=== PATIENT | female | born 1985 | race Hispanic/Latino ===

== ENCOUNTER 2016-11-18 15:27 | Emergency (ER) | payer SELFPAY ==
[2016-11-18 15:40] VITALS: TEMP 98; O2SAT 100
--- NOTE | 2016-11-18 16:37 | C.PDOC ---
History Of Present Illness 31 y/o female presents to ED with complaints of intermittent mid sternal chest pain for 3 days. Patient also reports occasional back pain and paresthesia to bilateral arms but improved now. Patient states she has been under a lot of stress due to losing a loved one. Patient denies any other complaints. Time Seen by Provider: 11/18/16 15:58 Chief Complaint (Nursing): Chest Pain History Per: Patient History/Exam Limitations: no limitations Onset/Duration Of Symptoms: Days Current Symptoms Are (Timing): Still Present Past Medical History Reviewed: Historical Data, Nursing Documentation, Vital Signs Vital Signs: Last Vital Signs Temp 98 F 11/18/16 15:33 Pulse 93 H 11/18/16 15:33 Resp 20 11/18/16 15:33 BP 121/83 11/18/16 15:33 Pulse Ox 100 11/18/16 16:37 Surgical History: No Surg Hx Family History: States: No Known Family Hx - Social History Hx Alcohol Use: No Hx Substance Use: No - Immunization History Hx Tetanus Toxoid Vaccination: No Hx Influenza Vaccination: Yes Hx Pneumococcal Vaccination: No Review Of Systems Except As Marked, All Systems Reviewed And Found Negative. Constitutional: Negative for: Fever, Chills Eyes: Negative for: Vision Change Cardiovascular: Positive for: Chest Pain Respiratory: Negative for: Cough, Shortness of Breath Gastrointestinal: Negative for: Nausea, Vomiting Genitourinary: Negative for: Dysuria, Frequency Musculoskeletal: Positive for: Back Pain Skin: Negative for: Rash Physical Exam - Physical Exam Appears: Non-toxic, Other (Mild anxious appearing) Skin: Normal Color, Warm, Dry, No Rash Head: Atraumatic, Normacephalic Eye(s): bilateral: Normal Inspection Oral Mucosa: Moist Neck: Normal ROM, Supple Chest: Symmetrical Cardiovascular: Rhythm Regular, No Murmur Respiratory: Normal Breath Sounds, No Rales, No Rhonchi, No Wheezing Gastrointestinal/Abdominal: Soft, No Tenderness, No Guarding, No Rebound Extremity: Normal ROM, Capillary Refill (<2 seconds) Neurological/Psych: Oriented x3, Normal Speech ED Course And Treatment O2 Sat by Pulse Oximetry: 100 (RA) Pulse Ox Interpretation: Normal Against Medical Advice - AMA Patient Left Against Medical Advice: The patient declines admission to the hospital and wishes to leave the Emergency Department. This action is against my medical advice. This decision was made with informed refusal. The patient was told that admission to the hospital is necessary. Explanation of the reasons why were discussed. The risks of leaving were explained to the patient and include, but are not limited to, worsening of known or currently unknown conditions, permanent disability and from undiagnosed or untreated conditions. The patient has the capacity to make this informed decision and understands my explanation of the current medical problem and risks of leaving. The patient voluntarily accepts these risks and signed an AMA form documenting our conversation. The patient was given the opportunity to ask questions and reconsider. The patient was encouraged to return to the Emergency Department at any time for further care. Medical Decision Making Medical Decision Making: Upon evaluation patient states she "needs something to relax and wants no other work up" Disposition - Disposition Referrals: [facility] [Outside] [facility] [Outside] [facility] [Outside] [facility] [Outside] Disposition: AGAINST MEDICAL ADVICE Disposition Time: 16:35 Condition: STABLE Additional Instructions: you are leaving with out diagnostic studies being preformed. you are able to return to er at any point with any concern. please see clinic and specialist. Instructions: Chest Pain (ED), Anxiety (ED) Forms: [employer] (Bulgarian) - Clinical Impression Clinical Impression: Chest pain - Scribe Statement The provider has reviewed the documentation as recorded by the Scribolvin Tracey All medical record entries made by the Bcibolvin were at my direction and personally dictated by me. I have reviewed the chart and agree that the record accurately reflects my personal performance of the history, physical exam, medical decision making, and the department course for this patient. I have also personally directed, reviewed, and agree with the discharge instructions and disposition.
[2016-11-18 16:52] VITALS: BP 107/74; PULSE 84; RESP 18
== END 2016-11-18 17:00 | disposition left against medical advice (07) ==
LOC: C.ER 15:27
DX: R07.9 Chest pain, unspecified (principal)

== ENCOUNTER 2016-11-23 19:43 | Emergency (ER) | payer OTHER ==
[2016-11-23 20:03] VITALS: RESP 16
[2016-11-23 21:20] LABS: BASO % 0.3 % (0.0-2.0); EOS # 0.2 K/uL (0.0-0.7); EOS % 2.7 % (0.0-4.0); HEMATOCRIT 39.7 % (34.0-47.0); LYMPH # 1.9 K/uL (1.0-4.3); LYMPH % 31.5 % (20.0-40.0); MEAN CELL VOLUME 66.4 fL (81.0-99.0); MEAN CORPUSCULAR HEMOGLOBIN 21.4 pg (27.0-31.0); MEAN CORPUSCULAR HGB CONC 32.2 g/dL (33.0-37.0); MONO # 0.5 K/uL (0.0-0.8); MONO % 7.7 % (0.0-10.0); RED CELL DISTRIBUTION WIDTH 14.8 % (11.5-14.5); WHITE BLOOD COUNT 6.1 K/uL (4.8-10.8)
[2016-11-23 21:25] LABS: RBC URINE < 1 /hpf (0-3); URINE BACTERIA RARE (<OCC); URINE BILIRUBIN NEGATIVE (NEGATIVE); URINE BLOOD NEGATIVE (NEGATIVE); URINE COLOR Yellow (YELLOW); URINE GLUCOSE (UA) NORMAL (Normal); URINE KETONE NEGATIVE (NEGATIVE); URINE LEUKOCYTE ESTERASE NEG Leu/uL (Negative); URINE PROTEIN NEGATIVE (NEGATIVE); URINE UROBILINOGEN NORMAL mg/dL (0.2-1.0); WBC URINE < 1 /hpf (0-5)
[2016-11-23 21:38] LABS: CHLORIDE 102 mmol/L (98-107)
[2016-11-23 21:39] LABS: POTASSIUM 3.6 mmol/L (3.6-5.2); SODIUM 140 mmol/L (132-148)
[2016-11-23 21:41] LABS: ALB/GLOB RATIO 1.4 (1.0-2.1); BILIRUBIN,TOTAL 0.4 mg/dL (0.2-1.3); CARBON DIOXIDE 25 mmol/L (22-30); GFR AFRICAN-AMERICAN > 60; TOTAL PROTEIN 7.7 g/dL (6.3-8.3)
[2016-11-23 21:42] LABS: ALKALINE PHOSPHATASE 80 U/L (38-126); ALT/SGPT 23 U/L (9-52); AST/SGOT 15 U/L (14-36); BLOOD UREA NITROGEN 14 mg/dL (7-17); GLUCOSE,RANDOM 98 mg/dL (65-105)
--- NOTE | 2016-11-23 21:52 | C.PDOC ---
History Of Present Illness 31 year old female who presents to the ER with a complaint of vague chest discomfort and anxiety after a in the family that occurred some time in the last 3 months. Patient was seen on 11/18/16 and left AMA; she is concerned about this recurrent and requests to be evaluated. Denies SOB, nausea, or vomiting. Time Seen by Provider: 11/23/16 21:33 Chief Complaint (Nursing): Chest Pain History Per: Patient History/Exam Limitations: no limitations Onset/Duration Of Symptoms: Days Current Symptoms Are (Timing): Still Present Associated Symptoms: denies: Nausea, Dyspnea, Diaphoresis, Syncope Modifying Factors: None Exacerbating Factors: None Alleviating Factors: None Recent travel outside of the [place]: No Past Medical History Reviewed: Historical Data, Nursing Documentation, Vital Signs Vital Signs: Last Vital Signs Temp 97.8 F 11/23/16 22:15 Pulse 85 11/23/16 22:15 Resp 16 11/23/16 22:15 BP 115/80 11/23/16 22:15 Pulse Ox 100 11/23/16 22:15 - Medical History PMH: No Chronic Diseases Surgical History: No Surg Hx Family History: States: Unknown Family Hx - Social History Hx Alcohol Use: No Hx Substance Use: No - Immunization History Hx Tetanus Toxoid Vaccination: No Hx Influenza Vaccination: Yes Hx Pneumococcal Vaccination: No Review Of Systems Constitutional: Negative for: Fever, Chills Cardiovascular: Positive for: Chest Pain (Discomfort) Respiratory: Negative for: Shortness of Breath Gastrointestinal: Negative for: Nausea, Vomiting Neurological: Negative for: Weakness, Numbness Psych: Positive for: Anxiety Physical Exam - Physical Exam Appears: Non-toxic, Other (Anxious, Tearful) Skin: Normal Color, Warm, Dry Head: Atraumatic, Normacephalic Eye(s): bilateral: Normal Inspection, EOMI Oral Mucosa: Moist Chest: Symmetrical, No Tenderness Cardiovascular: Rhythm Regular, No Murmur Respiratory: Normal Breath Sounds, No Rales, No Rhonchi, No Wheezing Gastrointestinal/Abdominal: Soft, No Tenderness Extremity: Normal ROM (x4) Neurological/Psych: Oriented x3, Normal Speech, Normal Cognition ED Course And Treatment - Laboratory Results Result Diagrams: 11/23/16 21:12 11/23/16 21:12 Lab Interpretation: Normal (trop neg.) ECG: Interpreted By Me ECG Rhythm: Sinus Rhythm ECG Interpretation: Normal Rate From EC O2 Sat by Pulse Oximetry: 99 Pulse Ox Interpretation: Normal Progress Note: Blood work, EKG, and urinalysis ordered. Reevaluation Time: 21:51 Reassessment Condition: Improved Medical Decision Making Medical Decision Making: more likely anxiety due to in the family approx < 3 mo go no GERD/cardiac components w/u neg f/u as opt. Disposition Doctor Will See Patient In The: Office Counseled Patient/Family Regarding: Studies Performed, Diagnosis - Disposition Referrals: Steve Jeff MD [Non-Staff] - Disposition: HOME/ ROUTINE Disposition Time: 21:51 Condition: GOOD Additional Instructions: please follow-up with Dr. Jeff for futher eval of your anxiety issues, as needed. Instructions: Anxiety (ED) Forms: [facility] (Telugu) - Clinical Impression Clinical Impression: Chest discomfort, Anxiety - Scribe Statement The provider has reviewed the documentation as recorded by the Scribe Stanton Chang All medical record entries made by the Scribe were at my direction and personally dictated by me. I have reviewed the chart and agree that the record accurately reflects my personal performance of the history, physical exam, medical decision making, and the department course for this patient. I have also personally directed, reviewed, and agree with the discharge instructions and disposition.
[2016-11-23 22:16] VITALS: BP 115/80; PULSE 85; TEMP 97.8
[2016-11-23 22:34] VITALS: O2SAT 99
--- NOTE | 2016-11-26 22:33 | CARD ---
APPROVED REPORT EKG Measurement Heart [id number] TN 130P34 [id number] <Conclusion> Normal sinus rhythm with sinus arrhythmia Normal ECG
== END 2016-11-23 22:17 | disposition home or self-care (01) ==
LOC: C.ER 19:43
DX: R07.9 Chest pain, unspecified (principal); F41.9 Anxiety disorder, unspecified

== ENCOUNTER 2017-10-15 22:59 | Emergency (ER) | payer OTHER ==
[2017-10-15 23:08] VITALS: RESP 20; TEMP 98.5
[2017-10-15 23:42] LABS: HCG,QUALITATIVE URINE NEGATIVE (NEGATIVE)
[2017-10-15 23:43] LABS: SQUAMOUS EPITHIAL 4 /hpf (0-5); URINE BACTERIA OCC (<OCC); URINE BILIRUBIN NEGATIVE (NEGATIVE); URINE BLOOD NEGATIVE (NEGATIVE); URINE CLARITY Hazy (Clear); URINE COLOR Yellow (YELLOW); URINE GLUCOSE (UA) NORMAL (Normal); URINE LEUKOCYTE ESTERASE NEG Leu/uL (Negative); URINE PROTEIN NEGATIVE (NEGATIVE); URINE UROBILINOGEN NORMAL mg/dL (0.2-1.0)
[2017-10-15] MEDS ORDERED: Sodium Chloride 0.9% 1,000 ML IV ONE (23:45)
[2017-10-15] MEDS ORDERED: Sucralfate 1 gm/10 ml Oral Susp UD PO STA (23:46)
--- NOTE | 2017-10-16 00:04 | C.PDOC ---
History Of Present Illness 32 year old female presents to the ER with a complaint of epigastric pain intermittently for the past few days. Patient describes the pain as a burning sensation and states it worsens after eating. Denies nausea or vomiting. Chief Complaint (Nursing): Abdominal Pain History Per: Patient History/Exam Limitations: no limitations Onset/Duration Of Symptoms: Days, Intermittent Episodes Current Symptoms Are (Timing): Still Present Location Of Pain/Discomfort: Epigastric Radiation Of Pain To:: None Quality Of Discomfort: Burning Associated Symptoms: denies: Nausea, Vomiting Exacerbating Factors: None Alleviating Factors: None Recent travel outside of the [place]: No Abnormal Vaginal Bleeding: No Past Medical History Reviewed: Historical Data, Nursing Documentation, Vital Signs Vital Signs: Last Vital Signs Temp 98.5 F 10/15/17 23:03 Pulse 95 H 10/15/17 23:03 Resp 20 10/15/17 23:03 BP 120/85 10/15/17 23:03 Pulse Ox 99 10/16/17 00:19 Surgical History: Appendectomy Family History: States: Unknown Family Hx - Social History Hx Alcohol Use: No Hx Substance Use: No - Immunization History Hx Tetanus Toxoid Vaccination: No Hx Influenza Vaccination: No Hx Pneumococcal Vaccination: No Review Of Systems Constitutional: Negative for: Fever, Chills Cardiovascular: Negative for: Chest Pain, Palpitations Respiratory: Negative for: Cough, Shortness of Breath Gastrointestinal: Positive for: Abdominal Pain. Negative for: Nausea, Vomiting Physical Exam - Physical Exam Appears: Non-toxic, No Acute Distress Skin: Normal Color, Warm, Dry Head: Atraumatic, Normacephalic Eye(s): bilateral: Normal Inspection Oral Mucosa: Moist Neck: Normal, Supple Chest: Symmetrical, No Tenderness Cardiovascular: Rhythm Regular Respiratory: Normal Breath Sounds, No Rales, No Rhonchi, No Wheezing Gastrointestinal/Abdominal: Soft, Tenderness (Epigastric), No Guarding, No Rebound Back: No CVA Tenderness Neurological/Psych: Oriented x3, Normal Speech ED Course And Treatment - Laboratory Results Result Diagrams: 10/15/17 23:55 10/15/17 23:55 O2 Sat by Pulse Oximetry: 99 (Room air) Pulse Ox Interpretation: Normal Progress Note: Blood work and urinalysis ordered. Carafate, protonix, and IV fluids administered. Disposition Counseled Patient/Family Regarding: Diagnosis - Disposition Referrals: [facility] [Outside] Disposition: HOME/ ROUTINE Disposition Time: 01:12 Condition: STABLE Prescriptions: Famotidine [Pepcid] 20 mg PO BID #30 tab Sucralfate [Carafate] 1 gm PO BID #20 tab Instructions: Gastritis, Ulcer and Gastritis Diet Forms: [employer] (Ukrainian) - POA Present On Arrival: None - Clinical Impression Clinical Impression: Gastroduodenitis - Scribe Statement The provider has reviewed the documentation as recorded by the Scribolvin Chang All medical record entries made by the Bcibolvin were at my direction and personally dictated by me. I have reviewed the chart and agree that the record accurately reflects my personal performance of the history, physical exam, medical decision making, and the department course for this patient. I have also personally directed, reviewed, and agree with the discharge instructions and disposition.
[2017-10-16 00:06] LABS: BASO % 0.4 % (0.0-2.0); EOS # 0.2 K/uL (0.0-0.7); HEMOGLOBIN 12.3 g/dL (11.0-16.0); LYMPH # 1.5 K/uL (1.0-4.3); LYMPH % 27.1 % (20.0-40.0); MEAN CELL VOLUME 66.3 fL (81.0-99.0); MEAN CORPUSCULAR HEMOGLOBIN 21.7 pg (27.0-31.0); MEAN CORPUSCULAR HGB CONC 32.7 g/dL (33.0-37.0); MEAN PLATELET VOLUME 9.2 fL (7.2-11.7); MONO # 0.3 K/uL (0.0-0.8); MONO % 6.1 % (0.0-10.0); NEUT # 3.4 K/uL (1.8-7.0); NEUT % 63.4 % (50.0-75.0); RBC 5.67 Mil/uL (3.80-5.20); RED CELL DISTRIBUTION WIDTH 14.4 % (11.5-14.5)
[2017-10-16] MEDS ORDERED: Sucralfate 1 gm/10 ml Oral Susp UD ONE (00:12)
[2017-10-16] MEDS ORDERED: Sodium Chloride 0.9% 1,000 ML ONE (00:12)
[2017-10-16 00:19] LABS: ALB/GLOB RATIO 1.5 (1.0-2.1); ALBUMIN 4.5 g/dL (3.5-5.0); ALT/SGPT 19 U/L (9-52); AST/SGOT 13 U/L (14-36); BLOOD UREA NITROGEN 9 mg/dL (7-17); GFR AFRICAN-AMERICAN > 60; GFR NON-AFRICAN AMERICAN > 60; LIPASE 61 U/L (23-300)
[2017-10-16 00:30] LABS: WHITE BLOOD COUNT 5.4 K/uL (4.8-10.8)
[2017-10-16 01:27] VITALS: BP 106/76; PULSE 93; O2SAT 100
== END 2017-10-16 01:27 | disposition home or self-care (01) ==
LOC: C.ER 22:59
DX: K29.90 Gastroduodenitis, unspecified, without bleeding (principal)
CPT/HCPCS: 80053; 81001; 83690; 84703; 85025; 96374; 99284; C9113; J7030

== ENCOUNTER 2018-04-03 13:53 | Emergency (ER) | payer OTHER ==
[2018-04-03 14:03] VITALS: BP 124/87; PULSE 71; RESP 16; TEMP 97.9; O2SAT 100
--- NOTE | 2018-04-03 14:59 | C.PDOC ---
History Of Present Illness 33 year old female presents to the ED for evaluation after she injured her left great toe at around 10:00 today. Patient is a [employer] employee; she states she was lifting a metal object which then fell onto her left great toe. Patient Ibuprofen at around 10-11am today. Patient denies extremity numbness/weakness. Time Seen by Provider: 04/03/18 14:08 Chief Complaint (Nursing): Lower Extremity Problem/Injury History Per: Patient History/Exam Limitations: no limitations Onset/Duration Of Symptoms: Hrs Current Symptoms Are (Timing): Still Present Additional History Per: Patient Past Medical History Reviewed: Historical Data, Nursing Documentation, Vital Signs Vital Signs: Last Vital Signs Temp 97.9 F 04/03/18 14:00 Pulse 71 04/03/18 14:00 Resp 16 04/03/18 14:00 BP 124/87 04/03/18 14:00 Pulse Ox 100 04/03/18 14:00 - Medical History PMH: No Chronic Diseases Surgical History: Appendectomy Family History: States: Unknown Family Hx - Social History Hx Alcohol Use: No Hx Substance Use: No - Immunization History Hx Tetanus Toxoid Vaccination: No Hx Influenza Vaccination: No Hx Pneumococcal Vaccination: No Review Of Systems Musculoskeletal: Positive for: Other (injury to left great toe ) Neurological: Negative for: Weakness, Numbness Physical Exam - Physical Exam Appears: Non-toxic, No Acute Distress Skin: Normal Color, Warm, Dry Head: Atraumatic, Normacephalic Eye(s): bilateral: Normal Inspection Extremity: Tenderness (to left great toe and to webbed space between left 1st and 2nd toes ), Capillary Refill (less than 2 seconds ), Swelling (to left great toe ), Other (100% subungal hematoma on left great toe ) Pulses: Left Dorsalis Pedis: Normal, Right Dorsalis Pedis: Normal Neurological/Psych: Oriented x3, Normal Speech, Normal Cognition ED Course And Treatment O2 Sat by Pulse Oximetry: 100 (on RA) Pulse Ox Interpretation: Normal Medical Decision Making Medical Decision Making: Progress: Left foot XR Tylenol PO given. I attempted nail trephination. Unable to express blood, but patient reports relief in pain. On reassessment, patient is resting comfortably, showing no signs of distress and is stable for discharge. Patient is advised to follow up with PMD within 1-2 days for further evaluation. Disposition Counseled Patient/Family Regarding: Studies Performed, Diagnosis, Need For Followup - Disposition Referrals: Steve Jeff MD [Non-Staff] - Disposition: HOME/ ROUTINE Disposition Time: 15:30 Condition: STABLE Additional Instructions: PONCHO ARREOLA, thank you for letting us take care of you today. Your provider was Loren Sawant MD and you were treated for FOOT PAIN. The emergency medical care you received today was directed at your acute symptoms. If you were prescribed any medication, please fill it and take as directed. It may take several days for your symptoms to resolve. Return to the Emergency Department if your symptoms worsen, do not improve, or if you have any other problems. Please contact your doctor for a follow up appointment in 2 days. Bring any p aperwork you were given at discharge with you along with any medications you are taking to your follow up visit. Our treatment cannot replace ongoing medical care by a primary care provider outside of the emergency department. Thank you for allowing the [facility] team to be part of your care today. Prescriptions: Cephalexin [cephalexin] 500 mg PO QID #28 cap Instructions: Contusion (DC), Toe Injury (DC) Forms: [employer] (Lebanese), General Discharge Instructions - POA Present On Arrival: None - Clinical Impression Clinical Impression: Subungual hematoma of great toe of left foot, Contusion of left foot - Scribe Statement The provider has reviewed the documentation as recorded by the Scribe (Andree Wynn) Provider Attestation: All medical record entries made by the Scribe were at my direction and personally dictated by me. I have reviewed the chart and agree that the record accurately reflects my personal performance of the history, physical exam, medical decision making, and the department course for this patient. I have also personally directed, reviewed, and agree with the discharge instructions and disposition. Procedures - Nail Trephination Consent Obtained: Verbal Consent Location (Toes): Left (1st) Sterile Prep: Betadine Method of Drainage: Nail Cautery Procdure Successful: No (unable to express blood ) Patient Tolerated Procedure: Well, No Complications
--- NOTE | 2018-04-03 15:27 | RAD ---
PROCEDURE: Left Foot Radiographs. HISTORY: injury COMPARISON: None available. FINDINGS: BONES: No acute displaced fracture. JOINTS: No dislocation. SOFT TISSUES: Soft tissue swelling. No evidence of radiopaque foreign body. OTHER FINDINGS: None. IMPRESSION: Soft tissue swelling. No acute displaced fracture, dislocation, or significant joint effusion identified. If symptoms persist, or if there is continued clinical concern, x-ray follow-up in 7-10 days should be considered.
== END 2018-04-03 15:59 | disposition home or self-care (01) ==
LOC: C.ER 13:53
DX: S90.112A Contusion of left great toe without damage to nail, initial encounter (principal); W22.8XXA Striking against or struck by other objects, initial encounter; Y92.89 Other specified places as the place of occurrence of the external cause; Y99.0 Civilian activity done for income or pay